=== PATIENT | male | born 1955 | race American Indian/Alaskan Native ===

== ENCOUNTER 2019-05-26 08:14 | Outpatient (CLI) | payer OTHER ==
[2019-05-26] MEDS ORDERED: LIDOCAINE (4%) 40 MG/ML TOPICAL SOLN 50 ML BOTTLE TP ONE (09:00)
[2019-05-26] MEDS ORDERED: VITAMIN A & D OINT 56.7 GM TP SCH (10:00)
== END 2019-05-26 08:15 | disposition home or self-care (01) ==
LOC: WOUND 08:14
PROVIDERS: ATTEND Surgery
DX: E11.622 Type 2 diabetes mellitus with other skin ulcer (principal); L97.822 Non-pressure chronic ulcer of other part of left lower leg with fat layer exposed; E11.40 Type 2 diabetes mellitus with diabetic neuropathy, unspecified
CPT/HCPCS: 11042; G0463; 99205; A6250

== ENCOUNTER 2019-05-26 10:11 | Outpatient (CLI) | payer OTHER ==
[2019-05-26 11:08] LABS: Hemoglobin 13.9 gm/dl (11.8-15.2)
== END 2019-05-26 10:12 | disposition home or self-care (01) ==
LOC: LAB 10:11
PROVIDERS: ATTEND Surgery
DX: E11.628 Type 2 diabetes mellitus with other skin complications (principal)
CPT/HCPCS: 36415; 83036; 85014; 85018

== ENCOUNTER 2019-06-02 08:10 | Outpatient (CLI) | payer OTHER ==
[2019-06-02] MEDS ORDERED: LIDOCAINE (4%) 40 MG/ML TOPICAL SOLN 50 ML BOTTLE TP ONE (09:00)
== END 2019-06-02 08:11 | disposition home or self-care (01) ==
LOC: WOUND 08:10
PROVIDERS: ATTEND Surgery
DX: E11.622 Type 2 diabetes mellitus with other skin ulcer (principal); L97.822 Non-pressure chronic ulcer of other part of left lower leg with fat layer exposed; E11.40 Type 2 diabetes mellitus with diabetic neuropathy, unspecified

== ENCOUNTER 2019-06-15 09:39 | Outpatient (CLI) | payer OTHER ==
[2019-06-15] MEDS ORDERED: LIDOCAINE (4%) 40 MG/ML TOPICAL SOLN 50 ML BOTTLE TP ONE (10:04)
== END 2019-06-15 09:40 | disposition home or self-care (01) ==
LOC: WOUND 09:39
PROVIDERS: ATTEND Surgery
DX: E11.622 Type 2 diabetes mellitus with other skin ulcer (principal); L97.822 Non-pressure chronic ulcer of other part of left lower leg with fat layer exposed; E11.40 Type 2 diabetes mellitus with diabetic neuropathy, unspecified